=== PATIENT | male | born 1980 | race Two or more races ===

== ENCOUNTER 2016-04-21 09:00 | Emergency (ER) | payer MEDICAID ==
[~2016-04-21] VITALS: Ht 177.8 cm; Wt 86.2 kg
[2016-04-21] MEDS ORDERED: NKM (09:10)
--- NOTE | 2016-04-21 09:31 | Emergency Room Report ---
History of Present Illness General Chief Complaint: Upper Extremity Injury Source: Patient Present Illness HPI Patient present with complaints of bilateral shoulder pain however more on the right than the left Patient reports that he was working while he was holding some pieces of wood above his head began having discomfort to the shoulders Over the past 3 days The discomfort however continued today he was having increased discomfort trying to lift the right arm above his head He reports that previously as a child he had broken his left shoulder And has felt fairly similar to that However denies any fall or other trauma in that sense The pain in the right shoulder starts at the shoulder and there is some radiculopathy downwards towards the upper arm Allergies: Coded Allergies: No Known Allergies (Unverified , 04/21/16) Patient History Past Medical History: see triage record Pertinent Family History: none Reviewed Nursing Documentation: PMH: Agreed, PSxH: Agreed Nursing Documentation-PMH Past Medical History: No Stated History Review of Systems All Other Systems: negative except mentioned in HPI Physical Exam Vital Signs Date Time Temp Pulse Resp B/P Pulse Ox O2 Delivery O2 Flow Rate FiO2 04/21/16 09:06 97.2 66 16 113/77 99 Room Air Sp02 EP Interpretation: reviewed, normal General Appearance: well appearing, no apparent distress Head: normocephalic, atraumatic Eyes: bilateral eye EOMI, bilateral eye PERRL ENT: normal pharynx, no angioedema Neck: supple, thyroid normal, no meningismus, no carotid bruits Gastrointestinal: soft, no mass Musculoskeletal: other - Patient has mainly reproducible discomfort at the right anterior shoulder with extension of the arm, the version and inversion of the forearm also causes some discomfort at the proximal shoulder, this is mainly on the right side, the left side has some mild discomfort on palpation anteriorly at the shoulder Neurologic: alert, oriented x3, responsive, shirt turner III-XII nml as tested Skin: normal color, no rash Lymphatic: no adenopathy Medical Decision Making Diagnostic Impression: Primary Impression: Shoulder sprain Additional Impression: Sprain shoulder/arm ER Course Clinically the patient appears to have sustained soft tissue injury including possible ligamental, rotator cuff injury to the right shoulder Patient however was requesting imaging and therefore x-ray was obtained from his records No obvious acute pathology seen Patient requires close outpatient followup with primary physician, possible further outpatient testing as needed such as MRI, otherwise no acute emergency room intervention is deemed appropriate , Other X-Ray Diagnostic Results Other X-Ray Diagnostic Results : EP Interpretation: Yes Findings: no fractures, no dislocation, no soft tissue swelling Number of Views: 3 - Right shoulder Last Vital Signs Date Time Temp Pulse Resp B/P Pulse Ox O2 Delivery O2 Flow Rate FiO2 04/21/16 09:06 97.2 66 16 113/77 99 Room Air Status: improved Disposition: HOME, SELF-CARE Condition: Improved Additional Instructions: Patient is provided with the discharge instructions notified to follow up with primary doctor in the next 2-3 days otherwise return to the er with any worsening symptoms. JOHNNY WEST D.O. Apr 21, 2016 09:31
[2016-04-21 10:08] VITALS: BP 114/65
--- NOTE | 2016-05-02 14:09 | Diagnostic Imaging Report ---
Indication: PAIN Technique: 3 views of the shoulder Comparison: none Findings: No acute fractures. No dislocations. The joint spaces are preserved Impression:Negative
== END 2016-04-21 10:11 | disposition home or self-care (01) ==
LOC: EMR 09:20
DX: S43.409A Unspecified sprain of unspecified shoulder joint, initial encounter (principal); M25.512 Pain in left shoulder; M25.511 Pain in right shoulder
CPT/HCPCS: 99283